=== PATIENT | female | born 1975 | race Caucasian/White ===

== ENCOUNTER 2018-04-29 17:08 | Emergency (ER) | payer OTHER, BC ==
--- NOTE | 2018-04-29 18:15 | ER Document Report ---
ED General - General Chief Complaint: Leg Swelling Stated Complaint: LEG PAIN/SWELLING Time Seen by Provider: 04/29/18 17:59 TRAVEL OUTSIDE OF THE [place] IN LAST 30 DAYS: No - HPI Patient complains to provider of: Left leg pain swelling Notes: Patient with calf pain foot pain left leg swelling patient with recent surgery called her orthopedic surgeon is told to come to ER for further evaluation. Patient denies any recent travel denies any fevers chills nausea vomiting diarrhea. Patient that she has been walking in flip-flops and is currently wearing supportive boots. Patient denies any trauma to her feet or to her legs. 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 Patient has not noticed any changes in her diet patient otherwise resting comfortably upon my evaluation. - Related Data Allergies/Adverse Reactions: No Known Allergies Allergy (Unverified 04/29/18 17:49) Past Medical History - Social History Smoking Status: Current Every Day Smoker Chew tobacco use (# tins/day): No Frequency of alcohol use: None Drug Abuse: None Family History: None Patient has suicidal ideation: No Patient has homicidal ideation: No Renal/ Medical History: Denies: Hx Peritoneal Dialysis Past Surgical History: Reports: Hx Hysterectomy, Hx Orthopedic Surgery - left hip Review of Systems - Review of Systems Constitutional: No symptoms reported EENT: No symptoms reported Cardiovascular: No symptoms reported Respiratory: No symptoms reported Gastrointestinal: No symptoms reported Genitourinary: No symptoms reported Female Genitourinary: No symptoms reported Musculoskeletal: Leg swelling, Other - Foot pain Skin: No symptoms reported Hematologic/Lymphatic: No symptoms reported Neurological/Psychological: No symptoms reported -: Yes All other systems reviewed and negative Physical Exam - Vital signs Interpretation: Normal - General General appearance: Appears well, Alert - HEENT Head: Normocephalic, Atraumatic Eyes: Normal Pupils: PERRL - Respiratory Respiratory status: No respiratory distress Chest status: Nontender Breath sounds: Normal Chest palpation: Normal - Cardiovascular Rhythm: Regular Heart sounds: Normal auscultation Murmur: No - Abdominal Inspection: Normal Distension: No distension Bowel sounds: Normal Tenderness: Nontender Organomegaly: No organomegaly - Back Back: Normal, Nontender - Extremities General upper extremity: Normal inspection, Nontender, Normal color, Normal ROM , Normal temperature General lower extremity: Normal inspection, Normal color, Normal ROM, Normal temperature, Normal weight bearing. No: Nontender - On examination of the foot am able to reproduce patient's pain cramping the foot by palpating the Achilles tendon patient also has pain in the gastroc region of the calf along with pain in the plantar region of the foot right foot unaffected minimal swelling seen pulses are intact, Rashel's sign - Neurological Neuro grossly intact: Yes Cognition: Normal Orientation: AAOx4 [place] Coma Scale Eye Opening: Spontaneous Stone Coma Scale Verbal: Oriented Stone Coma Scale Motor: Obeys Commands [place] Coma Scale Total: 15 Speech: Normal Motor strength normal: LUE, RUE, LLE, RLE Sensory: Normal - Psychological Associated symptoms: Normal affect, Normal mood - Skin Skin Temperature: Warm Skin Moisture: Dry Skin Color: Normal Course - Re-evaluation Re-evalutation: 04/29/18 21:18 S no reveal any critical pathology I abnormality causing cramping. Patient's ultrasound was negative patient's physical examination is consistent with a plantar fasciitis or possible muscle strain. Patient was educated about treatment of plantar fasciitis and given pain medication for home. Patient states understand discharged home. - Laboratory Result Diagrams: 04/29/18 18:15 Discharge - Discharge Clinical Impression: Leg swelling, Plantar fasciitis Condition: Good Disposition: HOME, SELF-CARE Admitting Provider: Pediatric Hospitalist Instructions: Dependent Edema ([facility]), Plantar Fasciitis or Heel Spur ([facility]) Additional Instructions: Her physical examination today is consistent with plantar fasciitis muscle pain of her foot. Swelling of legs more likely due to the inflammation would highly recommend wearing supportive shoes massaging the bottom of the foot rolling her foot over a large amount of pain to help out with your symptoms Tylenol and Motrin for pain control Ultram for severe pain. Return to ER symptoms worsen. Your laboratory results today show no signs of electrolyte abnormality. Your ultrasounds not showing signs of blood clots. Prescriptions: Ibuprofen [Motrin 600 mg Tablet] 600 mg PO Q8HP PRN #21 tablet PRN Reason: Tramadol HCl [Ultram 50 mg Tablet] 50 mg PO ASDIR PRN #20 tablet PRN Reason: Forms: Return to Work Referrals: JEOVANNY LARSON MD [ACTIVE STAFF] - Follow up in 1 week
[2018-04-29 18:46] LABS: ANION GAP 7 (5-19); BLOOD UREA NITROGEN 11 mg/dL (7-20); CALCIUM 9.3 mg/dL (8.4-10.2); CARBON DIOXIDE 26 mmol/L (22-30); CHLORIDE 106 mmol/L (98-107); GLUCOSE 100 mg/dL (75-110); POTASSIUM 4.4 mmol/L (3.6-5.0); SODIUM 139.2 mmol/L (137-145)
[2018-04-29] MEDS ORDERED: TRAMADOL HCL 50 MG TABLET PO ONE (20:18)
--- NOTE | 2018-04-29 21:12 | RADIOLOGY REPORT (SQ) ---
US EXTREMITY VEINS UNILATERAL HISTORY: Leg pain and swelling. COMPARISON: None. TECHNIQUE: Grayscale, color Doppler, and spectral Doppler images of the left lower extremity were performed. FINDINGS: The common femoral, superficial femoral and popliteal veins are patent and compressible. Normal augmentation and color Doppler blood flow in the aforementioned veins. The visualized calf veins are also patent. IMPRESSION: No evidence of DVT in the left lower extremity.
== END 2018-04-29 20:25 | disposition home or self-care (01) ==
LOC: ER 17:08
DX: M72.2 Plantar fascial fibromatosis (principal); M79.89 Other specified soft tissue disorders; M79.605 Pain in left leg; Z98.890 Other specified postprocedural states; F17.200 Nicotine dependence, unspecified, uncomplicated
CPT/HCPCS: 36415; 80048; 83735; 93971; 99284

== ENCOUNTER 2018-07-13 20:37 | Emergency (ER) | payer OTHER, BC ==
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
[2018-07-14] MEDS ORDERED: MORPHINE SULFATE 10 MG/ML INJ IV ONE (00:03)
[2018-07-14 00:12] LABS: ABSOLUTE BASOPHILS # (AUTO) 0.1 10^3/uL (0.0-0.2); ABSOLUTE EOSINOPHILS # (AUTO) 0.2 10^3/uL (0.0-0.6); ABSOLUTE LYMPHOCYTES (AUTO) 5.9 10^3/uL (0.5-4.7); ABSOLUTE MONOCYTES (AUTO) 0.7 10^3/uL (0.1-1.4); BASOPHILS % (AUTO) 0.9 % (0-2); EOSINOPHILS % (AUTO) 1.4 % (0-6); HEMATOCRIT 40.4 % (36.0-47.0); HEMOGLOBIN 13.5 g/dL (12.0-15.5); LYMPHOCYTES % (AUTO) 39.5 % (13-45); MEAN CORPUSCULAR HGB CONC 33.5 g/dL (32.0-36.0); MEAN CORPUSCULAR VOLUME 96 fl (80-97); MONOCYTES % (AUTO) 4.8 % (3-13); PLATELET COUNT 265 10^3/uL (150-450); RED BLOOD COUNT 4.22 10^6/uL (3.72-5.28); SEGMENTED NEUTROPHILS % (AUTO) 53.4 % (42-78); TOTAL CELLS COUNTED % (AUTO) 100 %; WHITE BLOOD COUNT 15.1 10^3/uL (4.0-10.5)
[2018-07-14 00:17] LABS: INTERNATIONAL RATION (INR) 0.88; PROTHROMBIN TIME 12.4 SEC (11.4-15.4)
[2018-07-14 00:18] LABS: PARTIAL THROMBOPLASTIN TIME 26.9 SEC (23.5-35.8)
[2018-07-14 00:34] LABS: ALANINE AMINOTRANSFERASE 49 U/L (9-52); ALBUMIN 4.2 g/dL (3.5-5.0); ALKALINE PHOSPHATASE 92 U/L (38-126); ANION GAP 8 (5-19); ASPARTATE AMINO TRANSFERASE 33 U/L (14-36); BILIRUBIN,DIRECT 0.3 mg/dL (0.0-0.4); BILIRUBIN,TOTAL 0.5 mg/dL (0.2-1.3); BLOOD UREA NITROGEN 10 mg/dL (7-20); CALCIUM 9.2 mg/dL (8.4-10.2); CARBON DIOXIDE 23 mmol/L (22-30); CHLORIDE 107 mmol/L (98-107); GLUCOSE 99 mg/dL (75-110); POTASSIUM 4.1 mmol/L (3.6-5.0); SODIUM 137.7 mmol/L (137-145); TOTAL PROTEIN 6.8 g/dL (6.3-8.2)
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
[2018-07-14 01:52] VITALS: BP 118/72
--- NOTE | 2018-07-14 07:12 | EKG REPORT ---
SEVERITY:- NORMAL ECG - SINUS RHYTHM : Confirmed by: Kenneth Hough MD 14-Jul-2018 07:12:07
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
== END 2018-07-14 01:30 | disposition home or self-care (01) ==
LOC: ER 20:37
DX: S16.1XXA Strain of muscle, fascia and tendon at neck level, initial encounter (principal); S06.0X0A Concussion without loss of consciousness, initial encounter; R07.9 Chest pain, unspecified; K92.0 Hematemesis; R10.84 Generalized abdominal pain; V89.2XXA Person injured in unspecified motor-vehicle accident, traffic, initial encounter; F17.200 Nicotine dependence, unspecified, uncomplicated; Z90.710 Acquired absence of both cervix and uterus
CPT/HCPCS: 93005; 99284; 96374; 36415; 85025; 85610; 85730; 80053; 84484; 70450; 71260; 72125; 74177; 93010; L0120; J2270

== ENCOUNTER 2020-02-19 19:08 | Emergency (ER) | payer BC, OTHER ==
[2020-02-19] MEDS ORDERED: DIPH/PERTUSS(ACELL)/TETANUS VAC/PF 0.5 ML SYR (>=10YO) IM ONE (19:49)
--- NOTE | 2020-02-19 19:49 | ER Document Report ---
ED Medical Screen (RME) - General Chief Complaint: Laceration Stated Complaint: FINGER LACERATION Time Seen by Provider: 02/19/20 19:48 Primary Care Provider: JAYLON MARCOS [Primary Care Provider] - Follow up as needed Mode of Arrival: Ambulatory Information source: Patient Notes: 44-year-old female presents to ED for laceration to the left index finger it is about 2 cm long across the end of the finger. It is still actively bleeding. She states she does not know when her last tetanus immunization was so she will have one ordered today. She is alert oriented respirations regular unlabored speaking in full sentences and she will need some stitches to her finger. I have greeted and performed a rapid initial assessment of this patient. A comprehensive ED assessment and evaluation of the patient, analysis of test results and completion of medical decision making process will be conducted by an additional ED providers. TRAVEL OUTSIDE OF THE [place] IN LAST 30 DAYS: No - Related Data Allergies/Adverse Reactions: No Known Allergies Allergy (Unverified 04/29/18 17:49) Past Medical History Renal/ Medical History: Denies: Hx Peritoneal Dialysis Past Surgical History: Reports: Hx Hysterectomy, Hx Orthopedic Surgery - left hip Physical Exam - Vital signs Vitals: Temp Pulse Resp BP Pulse Ox 98.1 F 94 14 127/88 H 100 02/19/20 19:32 02/19/20 19:32 02/19/20 19:32 02/19/20 19:32 02/19/20 19:32 Course - Vital Signs Vital signs: Temp Pulse Resp BP Pulse Ox 98.1 F 94 14 127/88 H 100 02/19/20 19:32 02/19/20 19:32 02/19/20 19:32 02/19/20 19:32 02/19/20 19:32 Doctor's Discharge - Discharge Referrals: [facility] [Primary Care Provider] - Follow up as needed
[2020-02-19] MEDS ORDERED: LIDOCAINE 1% INJ-PF (10 MG/ML) 30 ML SDV INJ ONE (21:24)
--- NOTE | 2020-02-19 21:37 | ER Document Report ---
ED Wound - General Chief Complaint: Laceration Stated Complaint: FINGER LACERATION Time Seen by Provider: 02/19/20 19:48 [facility] Care Provider: [facility] [[facility]] - Follow up as needed Mode of Arrival: Ambulatory Notes: CHIEF COMPLAINT: Left index finger laceration HPI: 44-year-old female presenting for evaluation of a laceration to the distal left index finger with a knife. Was cutting bread and holding it in her hand. Denies numbness or tingling in the fingertips states she can flex and extend the finger. ROS: See HPI - all other systems were reviewed and are otherwise negative Constitutional: no fever Integumentary: no rash, positive laceration Allergy: no hives Musculoskeletal: + extremity pain or swelling Neurological: no numbness/tingling, no weakness MEDICATIONS: I agree with the patient medications as charted by the RN. ALLERGIES: I agree with the allergies as charted by the RN. PAST MEDICAL HISTORY/PAST SURGICAL HISTORY: Reviewed and agree as charted by RN. SOCIAL HISTORY: Reviewed and agree as charted by RN. FAMILY HISTORY: No significant familial comorbid conditions directly related to patient complaint EXAM: Reviewed vital signs as charted by RN. CONSTITUTIONAL: Alert and oriented and responds appropriately to questions. Well-appearing; well-nourished HEAD: Normocephalic; atraumatic EYES: Conjunctivae clear, sclerae non-icteric ENT: normal nose; no rhinorrhea; moist mucous membranes NECK: Supple without meningismus CARD: symmetric distal pulses RESP: Normal chest excursion without splinting or tachypnea ABD/GI: non-distended BACK: The back appears normal EXT: Normal ROM in all joints; no cyanosis, no effusions, no edema SKIN: Normal color for age and race; warm; dry; good turgor; 1.5 cm horizontal laceration through the distal phalanx of the left index finger on the volar pad. Does not involve the nail. Full flexion extension of the left index finger at the DIP joint space region. Sensation is intact distal to the wound with capillary refill less than 3 seconds NEURO: Moves all extremities equally; Motor and sensory function intact PSYCH: The patient's mood and manner are appropriate. Grooming and personal hygiene are appropriate. MDM: 44-year-old female with a laceration to the distal left index finger. We will plan to closed with sutures TRAVEL OUTSIDE OF THE [place] IN LAST 30 DAYS: No - Related Data Allergies/Adverse Reactions: No Known Allergies Allergy (Unverified 04/29/18 17:49) Past Medical History - General Information source: Patient - Social History Smoking Status: Current Every Day Smoker Chew tobacco use (# tins/day): No Frequency of alcohol use: Occasional Drug Abuse: None Family History: None Renal/ Medical History: Denies: Hx Peritoneal Dialysis Past Surgical History: Reports: Hx Hysterectomy, Hx Orthopedic Surgery - left hip Physical Exam - Vital signs Vitals: Temp Pulse Resp BP Pulse Ox 98.1 F 94 14 127/88 H 100 02/19/20 19:32 02/19/20 19:32 02/19/20 19:32 02/19/20 19:32 02/19/20 19:32 Course - Vital Signs Vital signs: Temp Pulse Resp BP Pulse Ox 98.1 F 94 14 127/88 H 100 02/19/20 19:42 02/19/20 19:32 02/19/20 19:32 02/19/20 19:32 02/19/20 19:32 Procedures - Laceration/Wound Repair Left Distal Finger 2nd digit Time completed: 21:58 Wound length (cm): 1.5 Wound's Depth, Shape: Superficial, Linear Laceration pre-procedure: Sterile PPE donned, Sterile drapes applied, Shur-Clens applied Anesthetic type: 1% Lidocaine Volume Anesthetic (mLs): 1 Wound explored: Clean Irrigated w/ Saline (mLs): 500 Wound Repaired With: Sutures Suture Size/Type: 5:0, Other - Chromic Number of Sutures: 6 Post-procedure wound care: Sterile dressing applied Post-procedure NV exam normal: Yes Complications: No Discharge - Discharge Clinical Impression: Laceration of finger, left Qualifiers: Encounter type: initial encounter Finger: index finger Damage to nail status: without damage Foreign body presence: without foreign body Qualified Code(s): S61.211A - Laceration without foreign body of left index finger without damage to nail, initial encounter Condition: Stable Disposition: HOME, SELF-CARE Instructions: Laceration Care ([facility]) Additional Instructions: Sutures will dissolve over 7 to 10 days. Wash the finger gently with soap and water apply a small amount of antibiotic ointment and a dressing until healed. Return for any redness discharge or swelling or concerns for infection. Motrin or Tylenol for pain Referrals: [facility] [Primary Care [facility]] - Follow up as needed
[2020-02-19 22:34] VITALS: BP 125/80
== END 2020-02-19 22:35 | disposition home or self-care (01) ==
LOC: ER 19:08
DX: S61.211A Laceration without foreign body of left index finger without damage to nail, initial encounter (principal); W26.0XXA Contact with knife, initial encounter; Y93.G9 Activity, other involving cooking and grilling; Y92.009 Unspecified place in unspecified non-institutional (private) residence as the place of occurrence of the external cause; Z23 Encounter for immunization; F17.200 Nicotine dependence, unspecified, uncomplicated
CPT/HCPCS: 90471; 90715; 99283